=== PATIENT | female | born 1955 | race Caucasian/White ===

== ENCOUNTER 2017-02-14 11:12 | Outpatient (CLI) ==
[2014-10-12 16:32] VITALS: BMI 39.3
--- NOTE | 2017-02-14 11:58 | CT ---
EXAM: CT right knee without contrast HISTORY: Right knee pain COMPARISON: None available TECHNIQUE: Multiple axial images of the right knee were obtained without intravenous contrast. Marie ges were reformatted in the sagittal and coronal planes. FINDINGS: The bones are demineralized. No fracture or dislocation identified. Moderate medial com partment joint space narrowing noted with subchondral sclerosis and marginal osteophyte formation. More severe patellofemoral compartment joint space narrowing and marginal osteophyte formation noted . Lateral compartment joint space is maintained although moderate marginal osteophyte formation note d. Multiple suprapatellar loose bodies are present along with knee joint effusion. Small patellar e nthesophytes are present. No localized soft tissue abnormality identified. IMPRESSION: 1. No fracture or dislocation. 2. Moderate to severe osteoarthritis with loose bodies and joint effusion.
== END 2017-02-14 11:13 | disposition home or self-care (01) ==
LOC: RAD 11:12
PROVIDERS: ATTEND Emergency Medicine
DX: M25.561 Pain in right knee (principal)

== ENCOUNTER 2018-02-23 13:07 | Outpatient (CLI) ==
[2014-10-12 16:32] VITALS: BMI 39.3
== END 2018-02-23 13:08 | disposition home or self-care (01) ==
LOC: CAR 13:07
PROVIDERS: ATTEND Internal Medicine
DX: R06.02 Shortness of breath (principal); I10 Essential (primary) hypertension; E66.9 Obesity, unspecified; Z01.810 Encounter for preprocedural cardiovascular examination; Z82.49 Family history of ischemic heart disease and other diseases of the circulatory system
CPT/HCPCS: 36415; 80061; 83036; 84439; 84443; 93005; 93010

== ENCOUNTER 2018-02-27 06:47 | Outpatient (CLI) ==
[2014-10-12 16:32] VITALS: BMI 39.3
--- NOTE | 2018-03-01 10:44 | ECHO2D ---
Date of Exam: 02/27/18 Ordering Physician: DR. FIONA CELAYA Room #: OP Reason for Echo: PRESURG CLEARANCE, HTN, SOB M-Mode Normal Adult Results LV Dimensions Normal Adult Results AoV Opening excursions >1.6 >1.6 LVEDD-base- 3.5-5.8 5.4 Ao root dimensions 2.0-3.7 3.9 LVESD-base- 3.1-4.6 L. Atrium dimensions 1.9-3.8 3.6 Post. Wall thickness 0.8-1.1 1.2 IV septum (thickness) 0.7-1.2 1.2 Post. Wall excursion 0.72-1.3 NORMAL Septal motion NORMAL Systolic motion R. Ventricular cavity 1.5-2.0 NORMAL LVEF 60% 59% Paradoxical septal wall motion NORMAL 2-D : 2-D M Mode Echocardiogram was performed using apical four chamber and left parasternal long and short axis views. Mitral, tricuspid and aortic valves appear to be normal. Contractility of the left ventricle seems to be normal, so is the cavity size. Left atrial cavity size and aortic root appear to be normal. There is no pericardial effusion. There is no thrombus noted in the left ventricular or left aortic cavity. No mitral valve prolapse noted. M-MODE: MV: NORMAL AV: NORMAL TV: NORMAL PV: CHAMBER SIZE: NORMAL WALL MOTION: NORMAL PERICARDIUM: NORMAL INTERPRETATION: 1. BORDERLINE LEFT VENTRICULAR HYPERTROPHY 2. NORMAL VALVES 3. NORMAL LEFT VENTRICULAR CONTRACTILITY MTDD
== END 2018-02-27 06:48 | disposition home or self-care (01) ==
LOC: CAR 06:47
PROVIDERS: ATTEND Internal Medicine
DX: R06.02 Shortness of breath (principal); I10 Essential (primary) hypertension; Z01.810 Encounter for preprocedural cardiovascular examination

== ENCOUNTER 2018-02-28 06:51 | Outpatient (CLI) ==
[2014-10-12 16:32] VITALS: BMI 39.3
--- NOTE | 2018-03-01 10:46 | ECHOSTRESS ---
Date of Exam: 02/28/18 Ordering Physician: DR. FIONA CELAYA Reason for Echo: PRESURGICAL CLEARANCE, HTN, SOB, STRESS TEST--NO ISCHEMIA M-Mode Normal Adult Results LV Dimensions Normal Adult Results AoV Opening excursions >1.6 LVEDD-base- 3.5-5.8 Ao root dimensions 2.0-3.7 LVESD-base- 3.1-4.6 L. Atrium dimensions 1.9-3.8 Post. Wall thickness 0.8-1.1 IV septum (thickness) 0.7-1.2 Post. Wall excursion 0.72-1.3 Septal motion Systolic motion R. Ventricular cavity 1.5-2.0 LVEF 60% Paradoxical septal wall motion 2-D: NORMAL LEFT VENTRICULAR CONTRACTILITY--RESTING AND POST EXERCISE M-MODE: MV: AV: TV: PV: CHAMBER SIZE: WALL MOTION: NORMAL LEFT VENTRICULAR CONTRACTILITY--RESTING AND POST EXERCISE PERICARDIUM: INTERPRETATION: 1. NORMAL LEFT VENTRICULAR CONTRACTILITY--RESTING AND POST EXERCISE MTDD
--- NOTE | 2018-03-01 10:54 | MODSTECHO ---
Date of Test:02/28/18 Ordering Physician: DR. FIONA CELAYA Occupation: DISABLED Reason for Exam: HTN, SOB, SURGICAL CLEARANCE Smoking History: QUIT 35 YRS AGO Height: 63" Weight:222 LBS Current Medications: PRAMIPEXOLE, CALCIUM WITH VITAMIN D, FLEXERIL Resting EKG: SINUS RHYTHM/ NO ACUTE CHANGES Target Heart Rate: 132/156 S-T SEGMENT STAGE MPH/GRADE HEART RATE BPM BLOOD PRESSURE mmhg RHYTHM +/- ELEVATION DEPRESSION SYMPTOMS/COMMENTS At Rest 70 118/88 SR X NONE 1 1.7/0% 110 122/96 SR X NONE 2 1.7/5% 3 1.7/10% 4 2.5/12% 5 3.4/14% Immediately After 125 140/80 SR X FATIGUE/ KNEE PAIN Minutes Post Exercise 4:00 80 112/84 SR X NO COMMENTS Minutes Post Exercise DURATION OF EXERCISE: 4:21 MAXIMUM HEART RATE REACHED: 125 BPM REASON FOR TERMINATION: KNEE PAIN/ FATIGUE 99% OXYGEN SATURATION ON ROOM AIR WITH EXERCISE INTERPRETATION: 1. TEST NEGATIVE FOR ISCHEMIC ST-T WAVE CHANGES 2. NO CHEST PAIN OR CHEST DISCOMFORT 3. ONE PVC WITH EXERCISE 4. BLOOD PRESSURE RESPONSE--NORMAL NORMAL LEFT VENTRICULAR CONTRACTILITY--RESTING AND POST EXERCISE MTDD
--- NOTE | 2018-03-01 11:11 | STRESSMOD ---
Date of Test:02/28/18 Ordering Physician: DR. FIONA CELAYA Occupation: DISABLED Reason for Exam: HYPERTENSION, SOB, SURGICAL CLEARANCE Smoking History: QUIT 35 YRS AGO Height: 63" Weight: 222 LBS Current Medications: PRAMIPEXOLE, CALCIUM WITH VITAMIN D, FLEXERIL Resting EKG: SINUS RHYTHM/ NO ACUTE CHANGES Target Heart Rate: 132/156 S-T SEGMENT STAGE MPH/GRADE HEART RATE BPM BLOOD PRESSURE mmhg RHYTHM +/- ELEVATION DEPRESSION SYMPTOMS,COMMENTS At Rest 70 BPM 118/88 MMHG SR X NONE 1 1.7/0% 110 BPM 122/96 MMHG SR X NONE 2 1.7/5% 3 1.7/10% 4 2.5/12% 5 3.4/14% Immediately After 125 BPM 140/80 MMHG SR X KNEE PAIN/FATIGUE Minutes Post Exercise 4:00 80 BPM 112/84 MMHG SR X NO COMMENTS Minutes Post Exercise DURATION OF EXERCISE: 4:21 MAXIMUM HEART RATE REACHED: 125 BPM REASON FOR TERMINATION: KNEE PAIN/FATIGUE 98% OXYGEN SATURATION WITH EXERCISE ON ROOM AIR METS 4.0 INTERPRETATION: 1. TEST NEGATIVE FOR ISCHEMIC ST-T WAVE CHANGES 2. NO CHEST PAIN OR CHEST DISCOMFORT 3. ONE PVC WITH EXERCISE 4. BLOOD PRESSURE RESPONSE--NORMAL NORMAL LEFT VENTRICULAR CONTRACTILITY--RESTING AND POST EXERCISE MTDD
== END 2018-02-28 06:52 | disposition home or self-care (01) ==
LOC: CAR 06:51
PROVIDERS: ATTEND Internal Medicine
DX: R06.02 Shortness of breath (principal); I10 Essential (primary) hypertension; Z01.810 Encounter for preprocedural cardiovascular examination

== ENCOUNTER 2018-02-28 09:38 | Outpatient (RCR) ==
[2014-10-12 16:32] VITALS: BMI 39.3
--- NOTE | 2018-02-28 11:33 | RS.OPPTEV2 ---
Date of Note: 02/28/18 Visit #: 1 Date of Evaluation: 02/28/18 Payer Source: Medicaid Treatment Diagnosis: Right knee pain, primary osteoarthritis right knee History of Condition/Mechanism of Injury:: Patient reports progressive right knee pain from arthritis. She has had injections in the knee, which have not given much relief. She has a right total knee replacement scheduled for this coming 03/05/18. Prior Level of Function.....Patient was independent with: ADL's, Self Care, Caregiving, Ambulation/Mobility, Community Integration/Access Functional Limitations: ADL's, Sitting, Standing, Bending, Squatting, Ambulation , Community Access/Integration Current Subjective/complaints:: Ms. Gupta states she will be having a right TKA on Monday. She reports right knee pain with weight bearing. She does not think her right knee motion is very limited. She does not currently use an assistive device. States her left knee is in fairly good shape. She lives alone in a handicap accessible apartment. Reports she has Parkinsons' and has a tremor mainly in the right hand and leg. States she does not always clear the right foot when ambulating. Treatment Side (optional): Right Medical History Medical History Comments:: Parkinson's Disease Surgical History: (X 3) Smoking Status: Former smoker Hx Home Medications: pramipexole, Calcium,Losartan, cyclobenzapine Functional Outcome Measure - G Codes & Severity Modifier G Codes & Modifier: Na Source of G Code score: NA Gait - Gait Pattern Gait Comments: Patient ambulates without an assistive device. She demonstrates decreased stance on the right LE and decreased right hip and knee flexion. Demonstrates short step and stride length. She consistently clears both feet during swing phase. - Left Knee ROM Left Knee Extension: full extension Left Knee Flexion: 130 (degrees AROM) - Right Knee ROM Right Knee Extension: -5 degrees from full extension Right Knee Flexion: 112 (degrees AROM) Knee ROM Limitations: Pain - Left Knee Strength Left Knee Extension: 5 Normal Left Knee Flexion: 5 Normal Comments: left hip 4+ to 5/5. - Right Knee Strength Right Knee Extension: 4 Good Right Knee Flexion: 4 Good Comments: right hip 4/5. Sensation - Sensation Right Lower Extremity: Intact/Normal Left Lower Extremity: Intact/Normal Additional Comments: Additional Comments: SLR bilaterally 45-50 degrees. Interventions - Exercise/Activities/Manual Therapy Exercises/Activities: Patient instructed in ex's to prepare for TKA sx next week. HEP consists of QS, SAQ's, standing HS curls, supine knee flexion, ankle pumps, and SLR's. Advised to work on these to gain more AROM prior to surgery. Also advised how to make homemade cold packs so that she will have them at home following surgery. Total minutes of Exercise: 14 mins Manual Therapy: NA HOME EXERCISE PROGRAM: HEP consists of QS, SAQ's, standing HS curls, supine knee flexion, ankle pumps, and SLR's. - Charges Timed Code Treatment Minutes: 14 mins Total Treatment Time: 45 mins Procedures billed for this date of service:: HERIBERTO Win, Gabby EVALUATION COMPLEXITY LEVEL EVALUATION COMPLEXITY LEVEL: HISTORY: Medium (Parkinson's disease), EXAM OF BODY SYSTEMS: Low, CLINICAL PRESENTATION: Low, CLINICAL DECISION MAKING: Low Assessment Assessment: Ms. Gupta presents to therapy for instruction of exercises to prepare her for knee surgery. Patient very receptive to information and advice regarding her scheduled TKA. No further therapy at this time as patient demonstrates understanding of HEP and scheduled to have surgery in 5 days. Patient Education: Education of diagnosis, Body/Joint mechanics, Home Exercise Program Nursing Home Goals Goal #1: Pt demos. understanding of HEP. Goal to be met by: 02/28/18 Progress towards goal: Met Plan - Treatment to be Provided Procedures: Therapeutic Exercises, Patient Education Modalities: No Modalities - Treatment Plan Frequency: once Duration: One time treatment ORDER # VISITS AND/OR THROUGH DATE: 02/28/18 - Treatment Code (1) Knee pain Code(s): M25.569 - PAIN IN UNSPECIFIED KNEE Qualifiers: Chronicity: chronic Laterality: right Qualified Code(s): M25.561 - Pain in right knee; G89.29 - Other chronic pain (2) Primary osteoarthritis of right knee Code(s): M17.11 - UNILATERAL PRIMARY OSTEOARTHRITIS, RIGHT KNEE Comments: M17.11
== END 2018-03-11 23:59 ==
PROVIDERS: ATTEND Orthopaedic Surgery
DX: M17.11 Unilateral primary osteoarthritis, right knee (principal)

== ENCOUNTER 2018-04-02 08:57 | Outpatient (CLI) ==
[2014-10-12 16:32] VITALS: BMI 39.3
--- NOTE | 2018-04-02 09:58 | US ---
EXAM: Bilateral lower extremity venous Doppler History: Bilateral lower extremity edema. Technique: Multiple sonographic images through the bilateral lower extremities were obtained. Color duplex Doppler was used to interrogate vascular flow. Findings: The bilateral common femoral, greater saphenous, profunda, superficial femoral, popliteal, peroneal, posterior tibial and anterior tibial veins demonstrate spontaneous flow with normal compre ssion and normal augmentation. Impression: No sonographic evidence for deep venous thrombosis.
== END 2018-04-02 08:58 | disposition home or self-care (01) ==
LOC: RAD 08:57
PROVIDERS: ATTEND Orthopaedic Surgery
DX: R60.0 Localized edema (principal); Z98.890 Other specified postprocedural states

== ENCOUNTER 2018-04-10 14:00 | Outpatient (RCR) ==
[2017-02-14 11:16] VITALS: BMI 39.3
--- NOTE | 2018-03-21 11:44 | RS.OPPTEV2 ---
Date of Note: 03/20/18 Visit #: 1 Date of Evaluation: 03/20/18 Payer Source: Medicaid Surgery Performed?: Yes Procedure Performed: Right TKA Date of Procedure: 03/05/18 Treatment Diagnosis: Right knee pain, right knee stiffness, s/p Right TKA History of Condition/Mechanism of Injury:: Ms. Gupta reports having a right TKA due to progressive OA pain and limited function. Prior Level of Function.....Patient was independent with: ADL's, Self Care, Caregiving, Ambulation/Mobility, Community Integration/Access Functional Limitations: Self Care, ADL's, Reaching, Pushing, Pulling, Lifting, Carrying, Sitting, Standing, Bending, Squatting, Ambulation, Community Access/ Integration Current Subjective/complaints:: Ms. Gupta reports she took a couple of Tylenol this morning. She tries not to take the stronger medicine due to the side effects of constipation. She had approximately a week of inpatient therapy , following her surgery, and was discharged home on March 16. She lives in a handicap accessible apartment and her son is staying with her right now to help her. She has a shower bench. She is using her rolling walker and has iced the knee. She is unable to drive and is limited in selfcare, ADL's, and ambulation due to pain and stiffness in the right knee. Treatment Side (optional): Right Medical History Medical History Comments:: Parkinson's Disease Surgical History: (X 3) Smoking Status: Former smoker Hx Home Medications: pramipexole, Calcium,Losartan, cyclobenzapine Patient's Goals: Her goal is to return to her prior level of function. Pain Assessment - Pain Description Pain Location: right knee joint Current Pain Intensity: 3/10 Functional Outcome Measure LE Functional Scale: 18 (18/80=77.5% impairment) - G Codes & Severity Modifier G Codes & Modifier: NA Source of G Code score: NA Observation - Observation Inspection: Right knee presents with a healing, clean incision measuring 21.5 cm. J Carlos are out and mid way down the incision she demonstrates an area that is red and scabbed, approximately the size of a nickel. Demonstrates minimal swellling at the right lower leg and ankle. Demonstrates no redness of the right LE. Ms. Gupta demonstrates a resting tremor during evaluation. Girth Measurement Lower: At most superior aspect of incision 50cm, at most inferior aspect of incision 39.5 cm, and at malleoli 21.5 cm Gait - Gait Pattern Gait Comments: Pt amb. with a RW and decreased right heel strike and decreased stance phase on the right. Demonstrates decreased right hip and knee flexion in swing phase. - Left Knee ROM Left Knee Extension: full extension Left Knee Flexion: 130 (degrees AROM) - Right Knee ROM Right Knee Extension: -16 degrees from full extension Right Knee Flexion: 75 (degrees AAROM) Knee ROM Limitations: Soft Tissue Tightness, Pain Comments: Right knee extension improved to -10 degrees following ROM and stretching to heelcord. - Left Knee Strength Left Knee Extension: 5 Normal Left Knee Flexion: 5 Normal Comments: Left hip 4+ to 5/5. - Right Knee Strength Right Knee Extension: 4- Good- Right Knee Flexion: 4 Good Comments: right hip 4/5. Palpation Comments:: Right knee is warm to the touch, no more than to be expected. Sensation - Sensation Comments: Describes numbness along the medial and lateral aspect of the incision. Reports sensation intact to light touch and deep pressure below the knee. Balance - Sitting Balance Static Sitting Balance: Good Dynamic Sitting Balance: Good - Heat/Cryotherapy Treatment: Cryotherapy (X 15 mins to right knee , with LE elevated) Interventions - Exercise/Activities/Manual Therapy Exercises/Activities: Reviewed HEP from hospital: ankle pumps, QS, heelslides, hip abduction/adduction, SLR's, SAQ's. Assisted patient with knee flexion and extension. Stretched right HS and heelcord. Demonstrated using the left LE to gently push the right LE into more flexion while seated on side of bed or chair. Also discussed propping the right LE up for passive knee extension. Encouraged her to continue icing the knee a few times a day. Also discussed her pain medication and that she may need to at least take the medication prior to therapy. Total minutes of Exercise: X 18 mins Manual Therapy: NA HOME EXERCISE PROGRAM: HEP consists of QS, SAQ's, standing HS curls, supine knee flexion, ankle pumps, and SLR's. - Charges Timed Code Treatment Minutes: 18 mins Total Treatment Time: 48 mins Procedures billed for this date of service:: EVAL Low, CP, EX EVALUATION COMPLEXITY LEVEL EVALUATION COMPLEXITY LEVEL: HISTORY: Medium (HX of Parkinsons, OA), EXAM OF BODY SYSTEMS: Low, CLINICAL PRESENTATION: Low, CLINICAL DECISION MAKING: Low Assessment Assessment: Patient presents to therapy two weeks s/p right TKA. She presents with limited right knee ROM and strength. She is limited with selfcare, ADL's, and ambulation at this time due to pain and limited ROM. She has lived alone and was independent in all activities, including driving, prior to this procedure. Ms. Gupta shows great potential to benefit from skilled therapy to regain her independence and return to her prior level of function. Patient Education: Education of diagnosis, Body/Joint mechanics, Home Exercise Program, Home Safety, Activity Modification, Education of Plan of Care Rehab Potential: Good () Short Term Goals Goal #1: Pt independent and compliant with HEP. Goal to be met by: 04/04/18 Goal #2: Right knee extension to -3 degrees. Goal to be met by: 04/04/18 Goal #3: Right knee flexion to 105 degrees. Goal to be met by: 04/04/18 [employer] Goals Goal #1: Pt knows HEP and to continue ex's to maintain functional level at D/C. Goal to be met by: 04/25/18 Goal #2: Score on LE functional scale improved to 50/80. Goal to be met by: 04/25/18 Goal #3: Pt to amb. w/o assist device, independently with good safety. Goal to be met by: 04/25/18 Goal #4: Pt to gain functional AROM of right knee to perform all ADL's. Goal to be met by: 04/25/18 Plan - Treatment to be Provided Procedures: Therapeutic Exercises, Therapeutic Activity, Gait Training, Neuromuscular Rehab, Patient Education Modalities: Electrical Stimulation, Cryotherapy, Hot Packs - Treatment Plan Frequency: 2-3 X week Duration: 4 weeks ORDER # VISITS AND/OR THROUGH DATE: 04/25/18 - Treatment Code (1) Knee pain Code(s): M25.569 - PAIN IN UNSPECIFIED KNEE Qualifiers: Chronicity: acute Laterality: right Qualified Code(s): M25.561 - Pain in right knee (2) Knee stiffness Qualifiers: Laterality: right Qualified Code(s): M25.661 - Stiffness of right knee, not elsewhere classified (3) Gait abnormality Code(s): R26.9 - UNSPECIFIED ABNORMALITIES OF GAIT AND MOBILITY Comments: R26.9 (4) Aftercare following joint replacement surgery Code(s): Z47.1 - AFTERCARE FOLLOWING JOINT REPLACEMENT SURGERY Qualifiers: Joint replacement surgery site: knee Laterality: right Qualified Code(s) : Z47.1 - Aftercare following joint replacement surgery; Z96.651 - Presence of right artificial knee joint
--- NOTE | 2018-03-21 16:41 | RS.OPPTDN ---
Subjective Date of Note: 03/21/18 Visit #: 2 Date of Evaluation: 03/20/18 Payer Source: Medicaid Treatment Diagnosis: Right knee pain, right knee stiffness, s/p Right TKA Current Subjective/complaints:: Patient says she is taking a pain pill at bedtime and Tylenol during the day for relief. She also says she is working on HEP often. - Treatment Modality: Electrical Stim Unattended Parameters/Method Applied: hivolt 4 large pads crossed over the R knee @ 145- 160 pk volts x 20 mins after therex Patient Position: Supine - Heat/Cryotherapy Treatment: Cryotherapy (with estim) Interventions - Exercise/Activities/Manual Therapy Exercises/Activities: Patient begins with gentle stretching of HS and heel cords , PROM with gentle overpressures for flex/ext R knee. Patellar mobilization. Patient performs: QS and QS with ankle over towel roll for added stretch, heel slides, hip abd/add, SAQ, DF with red tband, ankle pumps in elevated position, SLR, LAQ and hip flexion in sitting. All 2x10. Ended with modalities. Discussed HEP and safety with gait/RW and reviewed ways of self stretching. Total minutes of Exercise: 28 Manual Therapy: NA HOME EXERCISE PROGRAM: HEP consists of QS, SAQ's, standing HS curls, supine knee flexion, ankle pumps, and SLR's. - Charges Timed Code Treatment Minutes: 28 Total Treatment Time: 48 Procedures billed for this date of service:: cp, estim (un(),ex2 Assessment: Patient demo good elliot of therex today. She is limiting herself on pain medication (prescription) and does take it more at nighttime to also help her sleep. She is eager to return to PLOF and admits improved pain level after session today. Patient Education: Education of diagnosis, Body/Joint mechanics, Home Exercise Program, Education of Plan of Care Patient demonstrates compliance with HEP?: Yes Short Term Goals Goal #1: Pt independent and compliant with HEP. Goal to be met by: 04/04/18 Progress towards Goal:: Progressing Goal #2: Right knee extension to -3 degrees. Goal to be met by: 04/04/18 Goal #3: Right knee flexion to 105 degrees. Goal to be met by: 04/04/18 Jail Goals Goal #1: Pt knows HEP and to continue ex's to maintain functional level at D/C. Goal to be met by: 04/25/18 Goal #2: Score on LE functional scale improved to 50/80. Goal to be met by: 04/25/18 Goal #3: Pt to amb. w/o assist device, independently with good safety. Goal to be met by: 04/25/18 Goal #4: Pt to gain functional AROM of right knee to perform all ADL's. Goal to be met by: 04/25/18 Plan PLAN OF CARE EXPIRES ON:: 04/25/18 ORDER # VISITS AND/OR THROUGH DATE: 04/25/18 PLAN: Patient to continue to improve R knee ROM and strength and to progress to least needed AD.
--- NOTE | 2018-03-23 15:13 | RS.OPPTDN ---
Subjective Date of Note: 03/23/18 Visit #: 3 Number of visits approved by Insurance: 2-3x 4, [id number] Date of Evaluation: 03/20/18 Payer Source: Medicaid Treatment Diagnosis: Right knee pain, right knee stiffness, s/p Right TKA Current Subjective/complaints:: Patient says modalities seemed to provide great relief for a little over 1 hour. She says she has been walking around her house without her RW and doing well as long as she is slow. She did take a pain pill prior to PT session this p.m. Reports she is just having trouble gaining flexion. - Treatment Modality: Electrical Stim Unattended Parameters/Method Applied: hivolt 4 large pads crossed over the R knee @ 135 pk volts x 18 mins after therex Patient Position: Supine - Heat/Cryotherapy Treatment: Cryotherapy Interventions - Exercise/Activities/Manual Therapy Exercises/Activities: Patient begins with gentle stretching of HS and heel cords , PROM with gentle overpressures for flex/ext R knee. Patellar mobilization. Patient performs: QS and QS with ankle over towel roll for added stretch, heel slides, hip abd/add, SAQ 1 1/2#, DF with red tband,ankle pumps in elevated position, SLR, ham curls red tband 2x10, LAQ and hip flexion in sitting. All 2x10. Ended with modalities. Measurements taken. Discussed HEP and safety with gait/RW and reviewed ways of self stretching. Total minutes of Exercise: 33 Manual Therapy: NA HOME EXERCISE PROGRAM: HEP consists of QS, SAQ's, standing HS curls, supine knee flexion, ankle pumps, and SLR's. - Objective Findings Observations,measurements,etc.: 83 degrees flexion in supine with heelslide - Charges Timed Code Treatment Minutes: 33 Total Treatment Time: 53 Procedures billed for this date of service:: cp, estim (un), ex2 Assessment: Patient demo improved elliot to therex and increased flexion by 8 degrees. Ext limited to 8-10 degrees actively. Improved amb to no AD at home, but maintains RW for community distances. Patient Education: Education of diagnosis, Home Exercise Program, Home Safety Patient demonstrates compliance with HEP?: Yes Short Term Goals Goal #1: Pt independent and compliant with HEP. Goal to be met by: 04/04/18 Progress towards Goal:: Progressing Goal #2: Right knee extension to -3 degrees. Goal to be met by: 04/04/18 Progress towards Goal:: Progressing Goal #3: Right knee flexion to 105 degrees. Goal to be met by: 04/04/18 Progress towards Goal:: Progressing Intermediate Goals Goal #1: Pt knows HEP and to continue ex's to maintain functional level at D/C. Goal to be met by: 04/25/18 Goal #2: Score on LE functional scale improved to 50/80. Goal to be met by: 04/25/18 Goal #3: Pt to amb. w/o assist device, independently with good safety. Goal to be met by: 04/25/18 Goal #4: Pt to gain functional AROM of right knee to perform all ADL's. Goal to be met by: 04/25/18 Plan Dates of Termite Control Representative Goals: 04/25/18 Expiration date of current Insurance Approval:: 04/25/18, 2-3x4 ([facility]) Will check at 10th visit for progress/approval PLAN: Continue for improved ROM and function as well as normalizing gait
--- NOTE | 2018-03-26 16:46 | RS.OPPTDN ---
Subjective Date of Note: 03/26/18 Visit #: 4 Number of visits approved by Insurance: 2-3x4 until 04/25/18 Date of Evaluation: 03/20/18 Payer Source: Medicaid Treatment Diagnosis: Right knee pain, right knee stiffness, s/p Right TKA Current Subjective/complaints:: Patient says each day is getting easier for her. She says she wants to try to go to a cane at home, but does not have one. She is eager to drive to [place], [place] in April and is hopeful she will be released to go. It is about 45 mins away. She is performing HEP often and taking pain meds only prior to coming to therapy. She reports having improved sleep and mobility. - Treatment Modality: Electrical Stim Unattended Parameters/Method Applied: hivolt @ 235-260 pk volts x 20 mins to the R knee after therex 4 large pads uncrossed Patient Position: Supine - Heat/Cryotherapy Treatment: Cryotherapy Interventions - Exercise/Activities/Manual Therapy Exercises/Activities: Patient continues with gentle stretching of HS and heel cords, PROM with gentle overpressures for flex/ext R knee. Patellar mobilization. Cross friction incisional massage. Patient performs: QS and QS with ankle over towel roll for added stretch, heel slides, hip abd/add, SAQ 1 1/ 2#, DF with red tband,ankle pumps in elevated position, SLR, ham curls red tband 2x10, LAQ and hip flexion in sitting. All 2x10. Ended with modalities. Gait training using NBQC providing prompts for sequencing and adjusted height. She is able to borrow our dept cane while she is attending therapy to use at home prn. Total minutes of Exercise: 35 Manual Therapy: NA HOME EXERCISE PROGRAM: HEP consists of QS, SAQ's, standing HS curls, supine knee flexion, ankle pumps, and SLR's. - Charges Timed Code Treatment Minutes: 35 Total Treatment Time: 55 Procedures billed for this date of service:: cp, estim (un), ex2 Assessment: Patient experiencing reduced pain level to the R knee, relying less on pain medication (prescription), admitting improved sleep, and amb now with NBQC in our dept with only initial cueing for sequence and side to use it on. Patient is going to borrow ours for use at home. She demo steady amb with Supervision required. Otherwise, she is using RW for community distances. Improved heel strike noted and flexion today. Measurements taken the end of this week. Patient Education: Home Exercise Program, Home Safety Patient demonstrates compliance with HEP?: Yes Short Term Goals Goal #1: Pt independent and compliant with HEP. Goal to be met by: 04/04/18 Progress towards Goal:: Progressing Goal #2: Right knee extension to -3 degrees. Goal to be met by: 04/04/18 Progress towards Goal:: Progressing Goal #3: Right knee flexion to 105 degrees. Goal to be met by: 04/04/18 Progress towards Goal:: Progressing Orchard Worker Goals Goal #1: Pt knows HEP and to continue ex's to maintain functional level at D/C. Goal to be met by: 04/25/18 Goal #2: Score on LE functional scale improved to 50/80. Goal to be met by: 04/25/18 Goal #3: Pt to amb. w/o assist device, independently with good safety. Goal to be met by: 04/25/18 Goal #4: Pt to gain functional AROM of right knee to perform all ADL's. Goal to be met by: 04/25/18 Plan Dates of [facility] Goals: 04/25/18 Expiration date of current Insurance Approval:: 04/25/18, will verify approval at 8th session PLAN: Continue for progression of ROM, strength, and independent/SC use for ambulation.
--- NOTE | 2018-04-02 16:36 | RS.OPPTDN ---
Subjective Date of Note: 03/30/18 Visit #: 6 Number of visits approved by Insurance: Henny, no approval currently. Treat 8-10 sessions based on TKR Date of Evaluation: 03/20/18 Payer Source: Medicaid Treatment Diagnosis: Right knee pain, right knee stiffness, s/p Right TKA Current Subjective/complaints:: Patient says she is excited to have a loaner motorized w/c so that she may go [place]. She was worried about walking prolonged period due to her limitations. She reports increased ability to bend her knee and being able to now lay on her stomach (favorable position). She has increased ability to sleep and less pain medication required. Interventions - Exercise/Activities/Manual Therapy Exercises/Activities: Patient continues with more aggressive stretching of HS and heel cords, PROM with gentle overpressures for flex/ext R knee. Patellar mobilization multiple reps for ROM. Cross friction incisional massage. Patient performs: QS and QS with ankle over bolster roll for added stretch, heel slides with overpressures, hip ball squeezes, SAQ progressed to 2#, DF with red tband,ankle pumps in elevated position, SLR, ham curls red tband 2x10, LAQ and hip flexion in sitting 2#. All 2x10. Contract/relax multiple reps and cycling with stretching. Began stationary bike for for/retro x 3 mins with static stretching. Gait training using SC providing prompts for sequencing and adjusted height as she felt more confident and steady with it than NBQC. She is able to borrow our dept SC while attending therapy to use at home prn. Measurements taken. Total minutes of Exercise: 50 Manual Therapy: NA HOME EXERCISE PROGRAM: HEP consists of QS, SAQ's, standing HS curls, supine knee flexion, ankle pumps, and SLR's. - Objective Findings Observations,measurements,etc.: -3 to 103 actively/107 passive supine - Charges Timed Code Treatment Minutes: 50 Total Treatment Time: 50 Procedures billed for this date of service:: ex3 Assessment: Improved ROM this week and decrease need for pain medication. She demo good control for quads with SLR and healing of incision and more pliable. Demo good safety with now progressing to NV in the dept and community distances , independent amb short distances at home. Patient Education: Home Exercise Program Patient demonstrates compliance with HEP?: Yes Short Term Goals Goal #1: Pt independent and compliant with HEP. Goal to be met by: 04/04/18 Progress towards Goal:: Progressing Goal #2: Right knee extension to -3 degrees. Goal to be met by: 04/04/18 Progress towards Goal:: Met Goal #3: Right knee flexion to 105 degrees. Goal to be met by: 04/04/18 Progress towards Goal:: Progressing Universal Grinder Set Up Operator Goals Goal #1: Pt knows HEP and to continue ex's to maintain functional level at D/C. Goal to be met by: 04/25/18 Goal #2: Score on LE functional scale improved to 50/80. Goal to be met by: 04/25/18 Goal #3: Pt to amb. w/o assist device, independently with good safety. Goal to be met by: 04/25/18 Goal #4: Pt to gain functional AROM of right knee to perform all ADL's. Goal to be met by: 04/25/18 Plan Dates of Skilled Nursing Goals: 04/25/18 Expiration date of current Insurance Approval:: 04/25/18 PLAN: Patient to continue with progressive therex to improve ROM and function advancing to independent community gait. Follow up with MD next week.
--- NOTE | 2018-04-03 16:24 | RS.OPPTDN ---
Subjective Date of Note: 04/03/18 Visit #: 7 Number of visits approved by Insurance: 8-10 due to no approval Date of Evaluation: 03/20/18 Payer Source: Medicaid Treatment Diagnosis: Right knee pain, right knee stiffness, s/p Right TKA Current Subjective/complaints:: Patient says her MD appt is moved to next Monday. She says she was able [place] go [place] by borrowing her friend's motorized w/c. She says she continues to work on HEP and walking around her home independently. She says she was able to prepare dinner for the first time yesterday with no increase in pain or swelling. She admits only taking Tylenol today and saves Tramadol for bedtime only. Pain Assessment - Pain Description Pain Location: c/o stiffness Interventions - Exercise/Activities/Manual Therapy Exercises/Activities: Patient begins with stretching on stationary bike statically with 1/2 revolutions x 6 mins. She continues with more aggressive stretching of HS, knee flexion, and heel cords. Patellar mobilization multiple reps for ROM. Cross friction incisional massage. Patient performs: QS and QS with ankle over bolster roll for added stretch, heel slides with overpressures, hip ball squeezes, SAQ progressed to 2 1/2#, DF progressed to green tband, ankle pumps in elevated position, SLR progressed to 1#, ham curls progressed to green tband 2x10, LAQ and hip flexion in sitting progressed to 2 1/2#. All 2x10. Contract/relax multiple reps and cycling with stretching. Patient ambulates around our dept independently with verballing giving herself cues for heel strike. Standin 1/2# R LE for ham curls, hip abd, hip flexion, and hip ext x 10. Total minutes of Exercise: 54 Manual Therapy: NA HOME EXERCISE PROGRAM: HEP consists of QS, SAQ's, standing HS curls, supine knee flexion, ankle pumps, and SLR's. - Charges Timed Code Treatment Minutes: 54 Total Treatment Time: 54 Procedures billed for this date of service:: ex4 Assessment: Patient has progressed herself to independent amb at home with using SC for community distances. She cues herself for heel strike, but does continue to scoot R foot with amb out of dept. Instruction for heel strike and to also flex at the hip to clear the foot while she was on our carpet. Patient Education: Home Safety, Education of Plan of Care Patient demonstrates compliance with HEP?: Yes Short Term Goals Goal #1: Pt independent and compliant with HEP. Goal to be met by: 04/04/18 Progress towards Goal:: Met Goal #2: Right knee extension to -3 degrees. Goal to be met by: 04/04/18 Progress towards Goal:: Met Goal #3: Right knee flexion to 105 degrees. Goal to be met by: 04/04/18 Progress towards Goal:: Progressing Group Home Goals Goal #1: Pt knows HEP and to continue ex's to maintain functional level at D/C. Goal to be met by: 04/25/18 Goal #2: Score on LE functional scale improved to 50/80. Goal to be met by: 04/25/18 Goal #3: Pt to amb. w/o assist device, independently with good safety. Goal to be met by: 04/25/18 Goal #4: Pt to gain functional AROM of right knee to perform all ADL's. Goal to be met by: 04/25/18 Plan Dates of Group Home Goals: 04/25/18 Expiration date of current Insurance Approval:: 04/25/18 PLAN: Patient only has 2 remaining sessions without current approval. She will attend MD appt next Monday, Apr 10.
--- NOTE | 2018-04-03 16:34 | RS.OPPTDN ---
Subjective Date of Note: 03/28/18 Visit #: 5 Number of visits approved by Insurance: 8-10 Date of Evaluation: 03/20/18 Payer Source: Medicaid Treatment Diagnosis: Right knee pain, right knee stiffness, s/p Right TKA Current Subjective/complaints:: Patient reports she is continuing to see progress with her mobility especially being able to "bend my knee back." - Treatment Modality: Electrical Stim Unattended Parameters/Method Applied: hivolt 4 large crossed pads over the R knee @ 230 pk volts x 20 mins at end of session. Patient Position: Supine - Heat/Cryotherapy Treatment: Cryotherapy Interventions - Exercise/Activities/Manual Therapy Exercises/Activities: Patient continues with stretching of HS and heel cords, more aggressive stretching for flex/ext R knee. Patellar mobilization. Cross friction incisional massage. Patient performs: QS and QS with ankle over towel roll for added stretch, heel slides, hip abd/add, SAQ 2#, DF with red tband,ankle pumps in elevated position, SLR, ham curls red tband 2x10, LAQ and hip flexion in sitting. All 2x10. Contract/Relax techniques at EOB to increase ROM. Ended with modalities. Gait training using NBQC providing prompts for sequencing and adjusted height. She is able to borrow our dept cane while she is attending therapy to use at home prn. Total minutes of Exercise: 35 Manual Therapy: NA HOME EXERCISE PROGRAM: HEP consists of QS, SAQ's, standing HS curls, supine knee flexion, ankle pumps, and SLR's. - Charges Timed Code Treatment Minutes: 35 Total Treatment Time: 55 Procedures billed for this date of service:: cp, estim (un), ex2 Assessment: Progressing to NBQC in dept and demo good safety and bal. Patient requires only initial cueing for sequence. She continues to be able to elliot increased stretching regarding flexion. Pain medication is needed much less, while pain is managed with Tylenol during the day and 1Tramadol at bedtime. Patient Education: Body/Joint mechanics, Home Exercise Program Patient demonstrates compliance with HEP?: Yes Short Term Goals Goal #1: Pt independent and compliant with HEP. Goal to be met by: 04/04/18 Progress towards Goal:: Progressing Goal #2: Right knee extension to -3 degrees. Goal to be met by: 04/04/18 Progress towards Goal:: Progressing Goal #3: Right knee flexion to 105 degrees. Goal to be met by: 04/04/18 Progress towards Goal:: Progressing Beam Saw Operator Goals Goal #1: Pt knows HEP and to continue ex's to maintain functional level at D/C. Goal to be met by: 04/25/18 Goal #2: Score on LE functional scale improved to 50/80. Goal to be met by: 04/25/18 Goal #3: Pt to amb. w/o assist device, independently with good safety. Goal to be met by: 04/25/18 Goal #4: Pt to gain functional AROM of right knee to perform all ADL's. Goal to be met by: 04/25/18 Plan Dates of Senior Care Goals: 04/25/18 Expiration date of current Insurance Approval:: 04/25/18 PLAN: Patient to continue for progressive ROM to the R knee.
--- NOTE | 2018-04-05 16:28 | RS.OPPTDN ---
Subjective Date of Note: 04/05/18 Visit #: 8 Number of visits approved by Insurance: 12 visits submitted for approval Date of Evaluation: 03/20/18 Payer Source: Medicaid Treatment Diagnosis: Right knee pain, right knee stiffness, s/p Right TKA Current Subjective/complaints:: Patient says she is hurting and aching today. She relates it to the damp, cooler weather. She says she she is gaining flexion and performs HEP often. She says she was able to go episcopalian last night and was able to stand/sit with less difficulty. She says she is going to use ice more often to help with her pain throughout the day. She has been performing scar tissue massage and is less tender at the incision. Pain Assessment - Pain Description Pain Description: Aching - Treatment Modality: Electrical Stim Unattended Parameters/Method Applied: hivolt 4 large pads at the R knee @ 170-180 pk volts x 15 mins following therex due to patient request because of ache. Patient Position: Supine - Heat/Cryotherapy Treatment: Cryotherapy Interventions - Exercise/Activities/Manual Therapy Exercises/Activities: Patient continues with stretching of HS and heel cords, more aggressive stretching for flex/ext R knee. Patellar mobilization. Cross friction incisional massage. Patient performs: QS and QS with ankle over towel roll for added stretch, heel slides, hip abd/add with green tband, SAQ 2 1 /2#, DF with green tband, SLR, ham curls green tband 2x10, All 2x10. Contract/ Relax techniques at EOB to increase ROM. Stationary bike for/retro x 5 mins partial revolutions. Ended with modalities. Measurements taken. Total minutes of Exercise: 45 Manual Therapy: NA HOME EXERCISE PROGRAM: HEP consists of QS, SAQ's, standing HS curls, supine knee flexion, ankle pumps, and SLR's. - Charges Timed Code Treatment Minutes: 45 Total Treatment Time: 60 Procedures billed for this date of service:: cp, estim (un), ex3 Assessment: Patient demo 106 degrees with heel slide and overpressure. She demo only mild swelling locally at the R knee. Good healing with smooth incision and patellar mobility. Increased ache today possibly due to weather, but has shown improved ROM. Patient Education: Home Exercise Program Patient demonstrates compliance with HEP?: Yes Short Term Goals Goal #1: Pt independent and compliant with HEP. Goal to be met by: 04/04/18 Progress towards Goal:: Progressing Goal #2: Right knee extension to -3 degrees. Goal to be met by: 04/04/18 Progress towards Goal:: Met Comments:: Measured today Goal #3: Right knee flexion to 105 degrees. Goal to be met by: 04/04/18 Progress towards Goal:: Met Comments:: Measured 106 today Public Works Inspector Goals Goal #1: Pt knows HEP and to continue ex's to maintain functional level at D/C. Goal to be met by: 04/25/18 Progress towards goal: Progressing Goal #2: Score on LE functional scale improved to 50/80. Goal to be met by: 04/25/18 Goal #3: Pt to amb. w/o assist device, independently with good safety. Goal to be met by: 04/25/18 Progress towards goal: Progressing Comments: short distances Goal #4: Pt to gain functional AROM of right knee to perform all ADL's. Goal to be met by: 04/25/18 Plan Dates of [facility] Goals: 04/25/18 Expiration date of current Insurance Approval:: 04/25/18 PLAN: Patient has completed 8 of 12 submitted visits. Continue at attend MD office Monday.
--- NOTE | 2018-04-10 15:50 | RS.OPPTDN ---
Subjective Date of Note: 04/10/18 Visit #: 9 Number of visits approved by Insurance: Pending [facility], requested 12 Date of Evaluation: 03/20/18 Payer Source: Medicaid Treatment Diagnosis: Right knee pain, right knee stiffness, s/p Right TKA Current Subjective/complaints:: Patient says she had a good report from her MD. She says she is now released to drive and drove to PT today without difficulty. She says her MD would like her to continue for increased ROM. She says she would like to get better at preparing meals and standing long enough to prepare Thanksgiving. She says she is continuing to wean her pain medication , but does feel elevated pain and fatigue today possibly from michael null/MD visit today. Pain Assessment - Pain Description Pain Description: Aching Interventions - Exercise/Activities/Manual Therapy Exercises/Activities: Patient continues with stretching of HS and heel cords, more aggressive stretching for flex/ext R knee. Patellar mobilization. Cross friction incisional massage. Patient performs: QS and QS with ankle over towel roll for added stretch, heel slides with overpressures, hip abd/add with green tband, SAQ 2 1/2#, DF with green tband, SLR, ham curls green tband 2x10, All 2x10. Contract/Relax techniques at EOB to increase ROM. Joint mobs and distraction (long axis) for the R knee. 2 1/2# for LAQ and hip flexion x 12. Stationary bike occupied. Will attempt next session. Total minutes of Exercise: 46 Manual Therapy: NA HOME EXERCISE PROGRAM: HEP consists of QS, SAQ's, standing HS curls, supine knee flexion, ankle pumps, and SLR's. - Charges Timed Code Treatment Minutes: 46 Total Treatment Time: 46 Procedures billed for this date of service:: ex3 Assessment: Patient presents with continuation order for 3x4 weeks. Discussed with patient about continuing 2x4 instead of TIW due to no approval yet from [facility], but we are able to justify continued need of PT due to surgical procedure and the rehab that is involved with restoring ROM and function. She continues to amb with NBQC, but is intermittent with actually relying on it. She has been released to drive today and is able to do so without c/o's. Chaya delgado improved ability to perform SLR and control with eccentric contraction. Patient Education: Home Safety, Education of Plan of Care Patient demonstrates compliance with HEP?: Yes Short Term Goals Goal #1: Pt independent and compliant with HEP. Goal to be met by: 04/04/18 Progress towards Goal:: Progressing Goal #2: Right knee extension to -3 degrees. Goal to be met by: 04/04/18 Progress towards Goal:: Met Goal #3: Right knee flexion to 105 degrees. Goal to be met by: 04/04/18 Progress towards Goal:: Partially Met Comments:: passively Nursing Home Goals Goal #1: Pt knows HEP and to continue ex's to maintain functional level at D/C. Goal to be met by: 04/25/18 Progress towards goal: Progressing Goal #2: Score on LE functional scale improved to 50/80. Goal to be met by: 04/25/18 Goal #3: Pt to amb. w/o assist device, independently with good safety. Goal to be met by: 04/25/18 Progress towards goal: Progressing Goal #4: Pt to gain functional AROM of right knee to perform all ADL's. Goal to be met by: 04/25/18 Plan Dates of Resolution Agent Goals: 04/25/18 Expiration date of current Insurance Approval:: 04/25/18 PLAN: Patient to continue with new order BIW x ~4 weeks depending on approval
== END 2018-04-11 23:59 ==
PROVIDERS: ATTEND Nurse Practitioner Family
DX: R26.81 Unsteadiness on feet (principal); Z74.09 Other reduced mobility; M17.11 Unilateral primary osteoarthritis, right knee; Z96.651 Presence of right artificial knee joint; Z47.1 Aftercare following joint replacement surgery; M25.561 Pain in right knee; M25.661 Stiffness of right knee, not elsewhere classified; R26.9 Unspecified abnormalities of gait and mobility

== ENCOUNTER 2018-06-15 14:27 | Outpatient (CLI) ==
[2017-02-14 11:16] VITALS: BMI 39.3
== END 2018-06-15 14:28 | disposition home or self-care (01) ==
LOC: CAR 14:27
PROVIDERS: ATTEND Internal Medicine
DX: Z01.810 Encounter for preprocedural cardiovascular examination (principal); I10 Essential (primary) hypertension
CPT/HCPCS: 93005; 93010

== ENCOUNTER 2018-06-25 07:12 | Day surgery (SDC) ==
[2017-02-14 11:16] VITALS: BMI 39.3
[2018-06-25] MEDS: CYCLOGYL 2% OPTH OP PRN ×3 (07:45→07:55)
[2018-06-25] MEDS: KETOROLAC 0.5% OPTH SOL OP PRN ×4 (07:45→08:15)
[2018-06-25] MEDS: AK-DILATE 10% OPTH SOL OP PRN ×3 (07:45→07:55)
[2018-06-25] MEDS: TETRACAINE 0.5% UNIT-DOSE OP PRN ×4 (07:45→09:04)
[2018-06-25] MEDS ORDERED: BETADINE OPTH PREP OP ONE (07:55)
[2018-06-25] MEDS ORDERED: DIAMOX PO STA (07:55)
[2018-06-25] MEDS ORDERED: SUBLIMAZE ONE (09:04)
[2018-06-25] MEDS ORDERED: VERSED ONE (09:04)
[2018-06-25 09:05] VITALS: TEMP 97.8
[2018-06-25] MEDS ORDERED: LIDOCAINE HCL 1% SDV INJ PRN (09:05)
[2018-06-25] MEDS ORDERED: DIAMOX ONE (10:15)
[2018-06-25 12:38] VITALS: BP 138/49
--- NOTE | 2018-06-26 09:41 | OP ---
PREOPERATIVE DIAGNOSIS: SENILE CATARACT, RIGHT EYE. POSTOPERATIVE DIAGNOSIS: SAME. OPERATION PHACOEMULSIFICATION ASPIRATION OF CATARACT RIGHT EYE. PLACEMENT OF POSTERIOR CHAMBER LENS. PHACO TIME 19.7 SECONDS AT 5% POWER. LENS MODEL FANNY [id number]. DIOPTER +20.5D. TECHNIQUE: CLEAR CORNEA. ANESTHESIA: TOPICAL ANESTHESIA W/ANESTHESIA MONITORING. OPERATIVE REPORT: Topical anesthesia consisting of Tetracaine was applied to the cornea and Xylocaine Methyl Paraben free of MFP was injected intracamerally into the anterior chamber. The patient was then brought into the operating room , prepped and draped in the usual ophthalmic manner. A lid speculum was placed and the operating microscope was used. A paracentesis was made at the 3 o' clock position. A clear corneal incision was made just out to the limbus. The anterior chamber was entered just inside the clear cornea. Viscoelastic was injected into the anterior chamber. A capsulotomy was performed with a bent # 27 gauge needle. Phacoemulsification was then performed in the posterior chamber. After completion of the phacoemulsification, residual cortical material was aspirated with the irrigation-aspiration system. The posterior capsule was polished. Viscoelastic was injected into the anterior and posterior chambers to inflate the capsular bag. Lens were placed via an Unfolder system and stabilized in the bag. Viscoelastic was removed from the anterior chamber. The wound was checked for any leakage. The four sponges were removed from the fornix. Topical antibiotic steroid and nonsteroidal drops were also applied to the cornea. A Pineda shield was applied. The patient left the operating room in good condition without any complications. INTRAOPERATIVE MEDICATIONS: Xylocaine Methyl Paraben Free MPF MTDD
== END 2018-06-25 10:20 | disposition home or self-care (01) ==
LOC: SURG 07:12
PROVIDERS: ATTEND Ophthalmology
DX: H25.13 Age-related nuclear cataract, bilateral (principal); H52.31 Anisometropia

== ENCOUNTER 2018-07-23 08:18 | Day surgery (SDC) ==
[2017-02-14 11:16] VITALS: BMI 39.3
[2018-07-23] MEDS: AK-DILATE 10% OPTH SOL OP PRN ×3 (10:10→10:20)
[2018-07-23] MEDS: OCUFEN 0.03% OPTH SOL OP PRN ×3 (10:10→10:40)
[2018-07-23] MEDS: CYCLOGYL 2% OPTH OP PRN ×3 (10:10→10:20)
[2018-07-23] MEDS: TETRACAINE 0.5% UNIT-DOSE OP PRN ×5 (10:10→11:54)
[2018-07-23] MEDS ORDERED: LIDOCAINE HCL 1% SDV INJ PRN (10:35)
[2018-07-23] MEDS ORDERED: BSS WITH EPINEPHRINE OP ONE (10:35)
[2018-07-23] MEDS ORDERED: BETADINE OPTH PREP OP ONE (10:35)
[2018-07-23] MEDS ORDERED: DIAMOX PO STA ×2 (10:35→13:55)
[2018-07-23 10:40] VITALS: TEMP 97.4
[2018-07-23] MEDS ORDERED: VERSED ONE (11:46)
[2018-07-23] MEDS ORDERED: DIAMOX ONE (12:30)
[2018-07-23 14:17] VITALS: BP 132/67
--- NOTE | 2018-07-24 14:31 | OP ---
PREOPERATIVE DIAGNOSIS: ADVANCED NUCLEAR SCLEROTIC PLUS CORTICAL PLUS POSTERIOR CORTICAL CATARACT LEFT EYE. POSTOPERATIVE DIAGNOSIS: SAME. OPERATION PHACOEMULSIFICATION ASPIRATION OF CATARACT LEFT EYE. PLACEMENT OF POSTERIOR CHAMBER LENS. PHACO TIME 15.0 SECONDS AT 5.0% POWER. LENS MODEL TECNIS [id number]. DIOPTER +19.5D. TECHNIQUE: CLEAR CORNEA. ANESTHESIA: TOPICAL ANESTHESIA W/ANESTHESIA MONITORING. OPERATIVE REPORT: Topical anesthesia consisting of Tetracaine was applied to the cornea and Xylocaine Methyl Paraben free of MFP was injected intracamerally into the anterior chamber. The patient was then brought into the operating room , prepped and draped in the usual ophthalmic manner. A lid speculum was placed and the operating microscope was used. A paracentesis was made at the 3 o' clock position. A clear corneal incision was made just out to the limbus. The anterior chamber was entered just inside the clear cornea. Viscoelastic was injected into the anterior chamber. A capsulotomy was performed with a bent # 27 gauge needle. Phacoemulsification was then performed in the posterior chamber. After completion of the phacoemulsification, residual cortical material was aspirated with the irrigation-aspiration system. The posterior capsule was polished. Viscoelastic was injected into the anterior and posterior chambers to inflate the capsular bag. Lens were placed via an Unfolder system and stabilized in the bag. Viscoelastic was removed from the anterior chamber. The wound was checked for any leakage. The four sponges were removed from the fornix. Topical antibiotic steroid and nonsteroidal drops were also applied to the cornea. A Pineda shield was applied. The patient left the operating room in good condition without any complications. INTRAOPERATIVE MEDICATIONS: Xylocaine Methyl Paraben Free MPF MTDD
== END 2018-07-23 12:30 | disposition home or self-care (01) ==
LOC: SURG 08:18
PROVIDERS: ATTEND Ophthalmology
DX: H04.123 Dry eye syndrome of bilateral lacrimal glands (principal); Z96.1 Presence of intraocular lens; H25.13 Age-related nuclear cataract, bilateral; H52.31 Anisometropia; G20 Parkinson's disease

== ENCOUNTER 2018-09-20 06:46 | Emergency (ER) ==
[2018-09-20 06:56] VITALS: BP 159/86; TEMP 100.1; BMI 39.2
--- NOTE | 2018-09-20 07:19 | ED.PDOC ---
General ED Provider: Dr. TAMIKA HUTSON Chief Complaint: Foot Pain/Injury Stated Complaint: "My Lt big toe hurts". States was out gardening yesterday. No injury recalled. Awakened this morning at 0400 hrs with severe throbbing pain in Lt Great Toe. Time Seen by Physician: 07:05 Mode of Arrival: Walk-In Information Source: Patient Exam Limitations: No limitations Primary Care Provider: FIONA CELAYA Referred to ED by: PCP Nursing and Triage Documentation Reviewed and Agree: Yes Does patient meet sepsis criteria?: No System Inflammatory Response Syndrome: Not Applicable Sepsis Protocol: For patient's 13 years and over: Temp is 96.8 and below OR 101 and greater Pulse >90 BPM Resp >20/minute Acutely Altered Mental Status Are patient's symptoms suggestive of a new infection, such as: -Pneumonia -Skin, Soft Tissue -Endocarditis -UTI -Bone, Joint Infection -Implantable Device -Acute Abdominal Infection -Wound Infection -Meningitis -Blood Stream Catheter Infection -Unknown Musculoskeletal Complaint Exam - Ankle/Foot Complaint/Exam Location of Injury: Reports: Left, Foot, Toe #1 Mechanism of Injury: Reports: No known trauma Onset/Duration: 12 hr Symptoms Are: Reports: Still present Onset of Pain: Reports: Immediate Initial Severity: Severe Current Severity: Moderate Location: Reports: Discrete Character: Reports: Aching, Throbbing Alleviating: Reports: None Aggravating: Reports: Movement, Weight bearing Able to Bear Weight: Yes Associated Signs and Symptoms: Reports: Swelling, Redness, Fever Related History: Denies: Similar episode Gout Risk Factors: Reports: >40 years old, Obesity Related Surgical History: Reports: None Lower Extremity Findings: Present: Swelling, Erythema, Warmth, Tenderness Achilles Tendon Abnormality: No Tenderness: Present: Metatarsals (Lt 1st MTP joint) Differential Diagnosis: Gout, Other (osteoarthritis) Review of Systems - Review Of Systems Constitutional: Reports: No symptoms Eyes: Reports: No symptoms Ears, Nose, Mouth, Throat: Reports: No symptoms Respiratory: Reports: No symptoms Cardiac: Reports: No symptoms GI: Reports: No symptoms : Reports: No symptoms Musculoskeletal: Reports: Joint pain, Joint swelling Skin: Reports: No symptoms Neurological: Reports: Other ( Rt sided movement disorder-Tremor, shaking, restless legs.) Endocrine: Reports: No symptoms Hematologic/Lymphatic: Reports: No symptoms All Other Systems: Reviewed and Negative Past Medical History - Past Medical History Previously Healthy: Yes Endocrine: Reports: None Cardiovascular: Reports: None Respiratory: Reports: None Hematological: Reports: None Gastrointestinal: Reports: None Genitourinary: Reports: None Neuro/Psych: Reports: None Musculoskeletal: Reports: Arthritis Cancer: Reports: None Last Menstrual Period: UNKNOWN - Surgical History General Surgical History: Reports: None - Family History Family History: Reports: Hypertension - Social History Smoking Status: Former smoker Hx Substance Use: No Alcohol Screening: None - Immunizations Tetanus Shot up to Date: (Unknown) Physical Exam - Physical Exam Appearance: Well-appearing, Obese Ill-appearing: Severe Pain Distress: Moderate Eyes: NATALIE, EOMI, Conjunctiva clear ENT: Ears normal, Nose normal, Oropharynx normal Neck: Supple Respiratory: Airway patent, Breath sounds clear, Breath sounds equal, Respirations nonlabored Cardiovascular: RRR, Pulses normal, No rub, No murmur GI/: Soft, Nontender, No masses, Bowel sounds normal, No Organomegaly Musculoskeletal: Normal strength, ROM intact, No edema, No calf tenderness Skin: Warm, Dry, Normal color Neurological: Sensation intact, Motor intact, Reflexes intact, Cranial nerves intact, Alert, Oriented Psychiatric: Affect appropriate Interpretation - Radiology Interpretation Radiology Interpretation By: Radiologist Radiology Results: Positive Exam Interpreted: Other (Lt Foot- changes 1st MTP joint swelling and OA changes mid foot(Uric acid elevated)) Critical Care Note - Critical Care Note Total Time (mins): 30 Course - Course Hematology/Chemistry: 09/20/18 07:49 09/20/18 07:49 Orders, Labs, Meds: Lab Review 09/20/18 09/20/18 09/20/18 07:49 07:49 07:49 WBC 6.38 RBC 4.74 Hgb 14.0 Hct 41.3 MCV 87.1 MCH 29.5 MCHC 33.9 RDW Coeff of Aviva 13.2 Plt Count 168 Immature Gran % (Auto) 0.2 Neut % (Auto) 62.1 Lymph % (Auto) 28.5 [place] % (Auto) 6.7 Eos % (Auto) 1.6 Baso % (Auto) 0.9 Immature Gran # (Auto) 0.0 Neut # (Auto) 4.0 Lymph # (Auto) 1.8 [place] # (Auto) 0.4 Eos # (Auto) 0.1 Baso # (Auto) 0.1 ESR 7 Sodium 141.4 Potassium 3.93 Chloride 105.1 Carbon Dioxide 26.3 Anion Gap 13.93 BUN 15.4 Creatinine 0.70 Estimated GFR (MDRD) 84.00 BUN/Creatinine Ratio 22.00 Glucose 100.8 Lactic Acid Uric Acid 8.02 H Calcium 9.65 Total Bilirubin 0.99 AST 26.3 ALT 22.7 Alkaline Phosphatase 57.2 Total Protein 7.24 Albumin 4.84 Globulin 2.40 Albumin/Globulin Ratio 2.01 Procalcitonin 09/20/18 09/20/18 07:49 07:49 WBC RBC Hgb Hct MCV MCH MCHC RDW Coeff of Aviva Plt Count Immature Gran % (Auto) Neut % (Auto) Lymph % (Auto) [place] % (Auto) Eos % (Auto) Baso % (Auto) Immature Gran # (Auto) Neut # (Auto) Lymph # (Auto) [place] # (Auto) Eos # (Auto) Baso # (Auto) ESR Sodium Potassium Chloride Carbon Dioxide Anion Gap BUN Creatinine Estimated GFR (MDRD) BUN/Creatinine Ratio Glucose Lactic Acid 1.44 Uric Acid Calcium Total Bilirubin AST ALT Alkaline Phosphatase Total Protein Albumin Globulin Albumin/Globulin Ratio Procalcitonin < 0.05 Orders Category Date Time Status BLOOD CULTURE (ED ONLY) Stat LAB 09/20/18 07:40 Received CBC W/ AUTO DIFF Stat LAB 09/20/18 07:49 Completed CMP [COMPREHENSIVE METABOLIC PANEL] Stat LAB 09/20/18 07:49 Completed ESR Stat LAB 09/20/18 07:49 Completed LACTIC ACID Stat LAB 09/20/18 07:49 Completed PROCALCITONIN Stat LAB 09/20/18 07:49 Completed URIC ACID Stat LAB 09/20/18 07:49 Completed Ketorolac Tromethamine [Toradol] MEDS 09/20/18 07:26 Discontinued 30 mg IM ONCE STA FOOT, LEFT 3 VIEWS Stat RADS 09/20/18 07:24 Completed Medications Discontinued Medications Generic Name Dose Route Start Last Admin Trade Name Freq PRN Reason Stop Dose Admin Ketorolac Tromethamine 30 mg 09/20/18 07:26 09/20/18 07:51 Toradol IM 09/20/18 07:27 30 mg ONCE STA Administration Vital Signs: Temp Pulse Resp BP Pulse Ox 09/20/18 06:47 100.1 F H 74 18 159/86 H 96 Departure - Departure Time of Disposition: 09:15 Disposition: HOME SELF-CARE Discharge Problem: Monoarticular arthritis, Gout Instructions: Low Purine Diet (ED), Gout (ED) Condition: Good Pt referred to PMD for follow-up: Yes (1 wk) IPMP verified?: No Additional Instructions: Activity per tolerated Take meds as directed Diet as directed Prescriptions: Allopurinol [Zyloprim] 200 mg PO DAILY #60 tablet Prednisone 10 mg PO DIRECTED #12 tablet Tramadol HCl 50 mg PO TID #10 tablet Allergies/Adverse Reactions: Allergies No Known Allergies Allergy (Verified 09/20/18 06:56) Home Medications: Ambulatory Orders Pramipexole Di-HCl [Mirapex] 0.5 mg PO BEDTIME 02/09/17 Calcium Carbonate/Vitamin D3 [Calcium 600-Vit D3 400 Caplet] 1 tab PO DAILY 03/30 Folic Acid/Vit B Complex and C [Super B Complex Tablet] 1 tab PO DAILY 06/21/18 Allopurinol [Zyloprim] 200 mg PO DAILY #60 tablet 09/20/18 Magnesium 200 mg PO DAILY 09/20/18 Prednisone 10 mg PO DIRECTED #12 tablet 09/20/18 Tramadol HCl 50 mg PO TID #10 tablet 09/20/18 Disposition Discussed With: Family (See PCP 1 week.)
[2018-09-20] MEDS ORDERED: TORADOL IM STA (07:26)
--- NOTE | 2018-09-20 08:15 | DI ---
EXAM: Three views of the left foot. History: Pain of the distal first metatarsal Findings: No acute fracture or dislocation. Developmentally short fourth metatarsal. Mild calcanea l enthesiopathy. Mild to moderate narrowing of the first MTP joint. There is soft tissue swelling o f the first digit. Mild to moderate arthritis at the mid foot. No evidence for osteomyelitis. Impression: 1. No acute osseous abnormality. 2. Arthritis. 3. Soft tissue swelling of the first digit
== END 2018-09-20 09:40 | disposition home or self-care (01) ==
LOC: ED 06:46
DX: M10.9 Gout, unspecified (principal)
CPT/HCPCS: 36415; 80053; 83605; 84145; 84550; 85025; 85651; 87040; 96372; 99283

== ENCOUNTER 2019-02-01 14:04 | Outpatient (RCR) | END 2019-02-09 23:59 | LOC: NEWBEG 14:04 | PROVIDERS: ATTEND Psychiatry & Neurology Psychiatry | DX: F43.22 Adjustment disorder with anxiety (principal) ==

== ENCOUNTER 2019-02-01 14:30 | Outpatient (RCR) ==
--- NOTE | 2019-01-18 13:34 | RS.OPPTEV2 ---
Date of Note: 01/17/19 Visit #: 1 Number of visits approved by Insurance: pending Date of Evaluation: 01/17/19 Payer Source: Medicaid Surgery Performed?: No Treatment Diagnosis: plantar fasciitis R LE, muscle tightness R heel cord, R foot pain History of Condition/Mechanism of Injury:: Pain began 11/2018. No definite injury noted. Prior Level of Function.....Patient was independent with: ADL's, Self Care, Caregiving, Ambulation/Mobility, Community Integration/Access Functional Limitations: Standing, Squatting, Ambulation Current Subjective/complaints:: pt states that she went to visit her granddaughter and she did alot of walking and standing and pain increased. States she is also concerned about falling recently possibly due to Parkinson's disease. pt states that she is getting custom orthotics 01/22/19. Treatment Side (optional): Right *Precautions: fall risk Medical History Medical History: Hypertension, Arthritis Medical History Comments:: Parkinson's Disease Surgical History: Knee Replacement, (X 3) Smoking Status: Current some day smoker Hx Home Medications: myrapex , unsure of name of other medications. Patient's Goals: decrease pain in R foot Pain Assessment - Pain Description Pain Location: R medial heel Pain Description: Sharp Current Pain Intensity: 4/10 Functional Outcome Measure LE Functional Scale: 36 - G Codes & Severity Modifier G Codes & Modifier: n/a Source of G Code score: n/a Observation - Observation Inspection: tightness noted in R heel cord. Posture: Forward Head, Rounded Shoulders, Increased Thoracic Kyphosis Handedness: Right Gait - Gait Pattern General Gait Pattern Observation: Festinating Gait, Crouched Gait Gait Comments: pt amb with decreased step length, flexed posture, shuffling gait due to parkinson's disease General Range of Motion: BUE WFL's. BLE WFL's with pain with R ankle ROM Muscle Strength: BUE 5/5. BLE hip flex 4+/5, knee flex/ext 4+/5, L ankle DF/PF 5/5, R ankle DF 4/5, PF 4-/5 Ankle ROM: Bilaterally WFL's Ankle Muscle Strength: Left WFL's - Right Ankle Strength Right Dorsiflexion: 4 Good Right Plantarflexion: 4 Good Right Eversion: 4 Good Right Inversion: 4 Good Palpation Palpation Findings: Tenderness Comments:: tenderness noted to palpation to R medial heel Sensation - Sensation Right Upper Extremity: Intact/Normal Left Upper Extremity: Intact/Normal Right Lower Extremity: Intact/Normal Left Lower Extremity: Intact/Normal Balance - Sitting Balance Static Sitting Balance: Good Dynamic Sitting Balance: Good - Standing Balance Static Standing Balance: Good Dynamic Standing Balance: Fair - Treatment Modality: Ultrasound Parameters/Method Applied: 1.5 w/cm2 x 8 mins Treatment Area: R medial heel - Heat/Cryotherapy Treatment: Cryotherapy Comments:: R heel Interventions - Exercise/Activities/Manual Therapy Exercises/Activities: pt received heel cord stretch to R LE, resisted DF, PF, IV , EV with green t band, and instructed on use of tennis ball to stretch plantar fascia. Manual Therapy: NA HOME EXERCISE PROGRAM: HEP consists of QS, SAQ's, standing HS curls, supine knee flexion, ankle pumps, and SLR's. - Charges Timed Code Treatment Minutes: 43 Total Treatment Time: 59 Procedures billed for this date of service:: eval low, u/s, CP EVALUATION COMPLEXITY LEVEL EVALUATION COMPLEXITY LEVEL: HISTORY: Low, EXAM OF BODY SYSTEMS: Low, CLINICAL PRESENTATION: Low, CLINICAL DECISION MAKING: Low Assessment Assessment: pt presents with pain in R medial heel, decreased strength R ankle, tightness noted in R heel cord. pt presents with symptoms consistent with plantar fasciitis. Patient Education: Home Exercise Program, Education of Plan of Care Short Term Goals Goal #1: Pt independent and compliant with HEP. Goal to be met by: 02/01/19 Goal #2: Decrease pain in R heel < 4/10 Goal to be met by: 02/01/19 Goal #3: Improve strength R ankle 4 to 4+/5 Goal to be met by: 02/01/19 Goal #4: Improve flexibility in R heel cord Goal to be met by: 02/01/19 [place] Guide Goals Goal #1: pt with decreased pain < 2/10 R heel Goal to be met by: 02/15/19 Goal #2: Score on LE functional scale improved to 50 Goal to be met by: 02/15/19 Goal #3: pt able to perform normal household activities w less pain Goal to be met by: 02/15/19 Plan - Treatment to be Provided Procedures: Therapeutic Exercises, Therapeutic Activity, Gait Training, Manual Therapy, Massage, Patient Education Modalities: Electrical Stimulation, Ultrasound/Phonophoresis, Cryotherapy, Hot Packs - Treatment Plan Frequency: 2 X week Duration: 4 weeks Dates of [facility] Goals: 02/15/19 Expiration date of current Insurance Approval:: 02/15/19 - Treatment Code (1) Plantar fasciitis of right foot Code(s): M72.2 - PLANTAR FASCIAL FIBROMATOSIS (2) Tightness of right heel cord Code(s): M67.01 - SHORT ACHILLES TENDON (ACQUIRED), RIGHT ANKLE (3) Right foot pain Code(s): M79.671 - PAIN IN RIGHT FOOT
--- NOTE | 2019-01-22 10:15 | RS.OPPTDN ---
Subjective Date of Note: 01/22/19 Visit #: 2 Number of visits approved by Insurance: pending, 8 requested Date of Evaluation: 01/17/19 Payer Source: Medicaid Treatment Diagnosis: plantar fasciitis R LE, muscle tightness R heel cord, R foot pain Current Subjective/complaints:: Patient says she has been wearing athletic shoes for better support with a heel and arch insert. STates she will be going to get custom made inserts this week and is anticipating it helping her symptoms further. She reports performing stretches and using ice at home and having relief also with treatment at [facility]. She says that she is also wearing athletic shoes so that if she begins to "drag" her foot, it squeaks and will prompt her to lift up her foot with walking. *Precautions: fall risk - Treatment Modality: Ultrasound Parameters/Method Applied: continuous @ 1.5 w/cm2 x 12 mins along the R plantar fascia and heel Patient Position: Supine - Heat/Cryotherapy Treatment: Hot Pack (surrounding the plantar surface and heel of the R foot supine x 15 mins) Interventions - Exercise/Activities/Manual Therapy Exercises/Activities: Patient receives passive stretching to the R heel cords and plantar fascia (great toe stretch). Manual isometrics for ankle IV/EV/PF/ DF 2x5. Education of diagnosis, encouraged frozen water bottle rolling and therex at home. Encouraged continued use of appropriate supportive shoes and also discussed increased hip flexion during gait to also clear foot. Total minutes of Exercise: 15 Manual Therapy: NA HOME EXERCISE PROGRAM: HEP consists of QS, SAQ's, standing HS curls, supine knee flexion, ankle pumps, and SLR's. - Charges Timed Code Treatment Minutes: 27 Total Treatment Time: 39 Procedures billed for this date of service:: hp, u/s, ex Assessment: Patient presents with good, supportive shoes with gel insert for the heel and arch which is OTC. She will be receiving custom inserts soon and is eager to continue with PT treatments to improve her pain rather than injections or more aggressive treatment. Patient Education: Education of diagnosis, Home Exercise Program, Home Safety, Education of Plan of Care Patient demonstrates compliance with HEP?: Yes Short Term Goals Goal #1: Pt independent and compliant with HEP. Goal to be met by: 02/01/19 Progress towards Goal:: Progressing Goal #2: Decrease pain in R heel < 4/10 Goal to be met by: 02/01/19 Goal #3: Improve strength R ankle 4 to 4+/5 Goal to be met by: 02/01/19 Goal #4: Improve flexibility in R heel cord Goal to be met by: 02/01/19 Apparatus Cleaner Goals Goal #1: pt with decreased pain < 2/10 R heel Goal to be met by: 02/15/19 Goal #2: Score on LE functional scale improved to 50 Goal to be met by: 02/15/19 Goal #3: pt able to perform normal household activities w less pain Goal to be met by: 02/15/19 Goal #4: Pt to gain functional AROM of right knee to perform all ADL's. Goal to be met by: 04/25/18 Progress towards goal: Met Plan Dates of Apparatus Cleaner Goals: 02/15/19 Expiration date of current Insurance Approval:: 02/15/19 PLAN: Continue BIW for treatment to her R foot including modalities to ease pain and tightness as well as assisted stretching as she is unable to perform effectively independently due to Parkinsons Dse.
--- NOTE | 2019-01-25 16:00 | RS.OPPTDN ---
Subjective Date of Note: 01/25/19 Visit #: 3 Number of visits approved by Insurance: pending Date of Evaluation: 01/17/19 Payer Source: Medicaid Treatment Diagnosis: plantar fasciitis R LE, muscle tightness R heel cord, R foot pain Current Subjective/complaints:: Patient says ambulation is getting easier as her foot pain is lessening with therapy. States she will be happy to obtain inserts in a few weeks to get even better improvement. *Precautions: fall risk - Treatment Modality: Ultrasound Parameters/Method Applied: continuous @ 1.5 w/cm2 x 10 mins to the R plantar fascia and into the medial arch Patient Position: Supine - Heat/Cryotherapy Treatment: Hot Pack (surrounding the plantar portion and heel of the R foot 15 mins supine) Interventions - Exercise/Activities/Manual Therapy Exercises/Activities: Patient receives passive stretching to the R heel cords and plantar fascia (great toe stretch). Manual isometrics for ankle IV/EV/PF/ DF 2x5. Began Red tband for all R foot motions 2x10. Continued with pt Education of diagnosis, encouraged frozen water bottle rolling and therex at home. Total minutes of Exercise: 19 Manual Therapy: NA HOME EXERCISE PROGRAM: HEP consists of QS, SAQ's, standing HS curls, supine knee flexion, ankle pumps, and SLR's. - Charges Timed Code Treatment Minutes: 29 Total Treatment Time: 44 Procedures billed for this date of service:: hp, u/s, ex Assessment: Patient experiencing reduced R plantar pain demo improved WBing on the R LE during ambulation. She is consciously trying to ambulate with heel strike and clearing her foot better, but feel much of her gait is contributory to Parkinsons using shuffling pattern. Patient Education: Home Exercise Program, Education of Plan of Care Patient demonstrates compliance with HEP?: Yes Short Term Goals Goal #1: Pt independent and compliant with HEP. Goal to be met by: 02/01/19 Progress towards Goal:: Progressing Goal #2: Decrease pain in R heel < 4/10 Goal to be met by: 02/01/19 Goal #3: Improve strength R ankle 4 to 4+/5 Goal to be met by: 02/01/19 Goal #4: Improve flexibility in R heel cord Goal to be met by: 02/01/19 [facility] Goals Goal #1: pt with decreased pain < 2/10 R heel Goal to be met by: 02/15/19 Goal #2: Score on LE functional scale improved to 50 Goal to be met by: 02/15/19 Goal #3: pt able to perform normal household activities w less pain Goal to be met by: 02/15/19 Goal #4: Pt to gain functional AROM of right knee to perform all ADL's. Goal to be met by: 04/25/18 Progress towards goal: Met Plan Dates of Telemarketing Sales Representative Goals: 02/15/19 Expiration date of current Insurance Approval:: 02/15/19 PLAN: continue modalities and progressive therex to improve R ankle strength to assist with more stable gait.
--- NOTE | 2019-01-30 14:36 | RS.OPPTDN ---
Subjective Date of Note: 01/30/19 Visit #: 4 Number of visits approved by Insurance: pending, IDPA requested 8 Date of Evaluation: 01/17/19 Payer Source: Medicaid Treatment Diagnosis: plantar fasciitis R LE, muscle tightness R heel cord, R foot pain Current Subjective/complaints:: Patient admits she forgotten her appt on Monday and would like to get into us another day this week. States that her heel pain is getting a little better. Says she knows she is supposed to put her heel down first to walk, but it is painful. Reports she is trying just to lift her whole leg up so that she can clear the floor. States she is trying not to have an injection, but she is going on a trip the end of next month and if her pain is not any better, she will probably resort to the injection. *Precautions: fall risk - Treatment Modality: Ultrasound Parameters/Method Applied: continuous @ 1.5 w/cm2 x 12 mins to the R heel and plantar fascia Patient Position: Supine - Heat/Cryotherapy Treatment: Hot Pack (15 mins to the R heel and plantar surface in supine) Interventions - Exercise/Activities/Manual Therapy Exercises/Activities: Patient receives passive stretching to the R heel cords and plantar fascia (great toe stretch). Manual isometrics for ankle IV/EV/PF/ DF 2x5. Continued with Red tband for all R foot motions 2x10. Bilateral IV using ball between ankles x 10, then single R IV into ball x 10. Sitting EOB for wobble board all motions x 10 ea. Continued with pt Education of diagnosis , encouraged frozen water bottle rolling and therex at home. Total minutes of Exercise: 22 Manual Therapy: NA HOME EXERCISE PROGRAM: HEP consists of QS, SAQ's, standing HS curls, supine knee flexion, ankle pumps, and SLR's. - Charges Timed Code Treatment Minutes: 34 Total Treatment Time: 49 Procedures billed for this date of service:: hp, u/s, ex Assessment: Patient experiencing mild temporary reduction in heel pain through treatment. She is conflicted to getting injection or just awaiting further healing through PT. She continues to have difficutly ambulating due to heel strike causing pain so I did encourage her again to try to avoid heel strike and just clear the foot with slightly exaggerated R hip flexion to ease pain while we are working to reduce the inflammation. Patient Education: Education of diagnosis, Home Exercise Program, Home Safety, Education of Plan of Care Patient demonstrates compliance with HEP?: Yes Short Term Goals Goal #1: Pt independent and compliant with HEP. Goal to be met by: 02/01/19 Progress towards Goal:: Progressing Goal #2: Decrease pain in R heel < 4/10 Goal to be met by: 02/01/19 Progress towards Goal:: Progressing (slightly and temporary) Goal #3: Improve strength R ankle 4 to 4+/5 Goal to be met by: 02/01/19 Goal #4: Improve flexibility in R heel cord Goal to be met by: 02/01/19 Palletizer Goals Goal #1: pt with decreased pain < 2/10 R heel Goal to be met by: 02/15/19 Goal #2: Score on LE functional scale improved to 50 Goal to be met by: 02/15/19 Goal #3: pt able to perform normal household activities w less pain Goal to be met by: 02/15/19 Goal #4: Pt to gain functional AROM of right knee to perform all ADL's. Goal to be met by: 04/25/18 Progress towards goal: Met Plan Dates of Skilled Nursing Goals: 02/15/19 Expiration date of current Insurance Approval:: 02/15/19 PLAN: continue using modalities (possibly switching to pulsed U/s) and possibly ending with therex and cryotherapy.
== END 2019-02-09 23:59 ==
PROVIDERS: ATTEND Nurse Practitioner Family
DX: M72.2 Plantar fascial fibromatosis (principal); M67.01 Short Achilles tendon (acquired), right ankle; M79.671 Pain in right foot

== ENCOUNTER 2019-02-08 12:02 | Outpatient (RCR) | payer OTHER | END 2019-02-09 23:59 | LOC: NEWBEG 12:02 | PROVIDERS: ATTEND Psychiatry & Neurology Psychiatry | DX: F43.22 Adjustment disorder with anxiety (principal) | CPT/HCPCS: 90792 ==